=== PATIENT | female | born 1940 | race Hispanic/Latino ===

== ENCOUNTER → 2021-05-19 | Outpatient (CLI) | payer MEDICARE, BC ==
[~2021-05-19] MED LIST: AMLODIPINE BESY10 MG PO; ASPIR 8181 MG PO; Bisoprolol PO; DIGOXIN PO; LASIX20 MG PO; LEVOTHYROXINE PO; METOPROLOL TARTRATE INJ 1 MG/ML VIAL ONE; PLAVIX75 MG PO; PRILOSEC 40 MG PO; REGADENOSON 0.4 MG/5 ML SYR IV ONE; SOTALOL80 MG PO; [UNRECOGNIZED DRUG - OTHER]; eloquis
== END ==
LOC: NM 09:53
PROVIDERS: ATTEND Internal Medicine Cardiovascular Disease
DX: I25.10 Atherosclerotic heart disease of native coronary artery without angina pectoris (principal); R06.02 Shortness of breath
CPT/HCPCS: 78452; 93017; A9502; J2785